=== PATIENT | male | born 1990 | race Caucasian/White ===

== ENCOUNTER 2019-04-24 03:38 | Emergency (ER) | payer OTHER ==
[~2019-04-24] VITALS: Ht 172.7 cm; Wt 104.3 kg
--- NOTE | 2019-04-24 03:57 | NUR ---
PT BIB [facility] FROM [facility] FOR ETOH INTOXICATION. PT UNRESPONSIVE, PLACED ON 3L OXYGEN VIA NC.
--- NOTE | 2019-04-24 04:00 | NUR ---
UNABLE TO COMPLETE TRIAGE ASSESSMENT AND MED REC AT THIS TIME PT IS UNRESPONSIVE.
--- NOTE | 2019-04-24 04:01 | NUR ---
PT PLACED ON HAND FILER BALANCE WHEEL. LAB AT BEDSIDE.
[2019-04-24 04:31] LABS: ALANINE AMINOTRANSFERASE 35 U/L (12-78); ALBUMIN 3.7 g/dL (3.4-5.0); ANION GAP 7 mmol/L (5-15); CALCIUM 8.1 mg/dL (8.5-10.1); CHLORIDE 114 mmol/L (98-107); CREATININE 0.94 mg/dL (0.7-1.3)
[2019-04-24 04:34] LABS: BASOPHILS # (AUTO) 0.02 x10^3/uL (0-0.1); BASOPHILS % (AUTO) 0 % (0-1); EOSINOPHILS # (AUTO) 0.01 x10^3/uL (0-0.4); EOSINOPHILS % (AUTO) 0 % (1-7); LYMPHOCYTES % (AUTO) 19 % (22-44); MD NO; MEAN CORPUSCULAR HEMOGLOBIN 31.9 pg (27.5-34.5); MEAN CORPUSCULAR HGB CONC 33.9 g/dL (33.2-36.2); MEAN CORPUSCULAR VOLUME 94.2 fL (81-97); MEAN PLATELET VOLUME 9.1 fL (7.4-10.4); MONOCYTES # (AUTO) 0.64 x10^3/uL (0.2-0.8); MONOCYTES % (AUTO) 8 % (2-9); NEUTROPHILS # (AUTO) 6.12 x10^3/uL (1.8-6.8); NEUTROPHILS % (AUTO) 73 % (42-75); PLATELET COUNT 188 x10^3/uL (130-400); RED BLOOD COUNT 5.13 x10^6/uL (4.38-5.82); RED CELL DISTRIBUTION WIDTH 13.4 % (9.4-14.8)
[2019-04-24 04:35] LABS: ALKALINE PHOSPHATASE 47 U/L (45-117); BILIRUBIN,TOTAL 0.6 mg/dL (0.2-1.0); TOTAL PROTEIN 7.2 g/dL (6.4-8.2)
--- NOTE | 2019-04-24 05:59 | NUR ---
PT REPOSITIONED ON GURNEY FOR COMFORT, STATED "HI" BEFORE FALLING ASLEEP AGAIN. RESPIRATIONS EVEN AND UNLABORED. OXYGEN LEVEL DECREASED TO 2L VIA NC.
--- NOTE | 2019-04-24 06:52 | NUR ---
REPORT TO REENA FARAH
--- NOTE | 2019-04-24 08:00 | NUR ---
found out of gurney laying across chairs in room. pt had been incontinent of urine. gurney cleaned and pt stumbled back onto gurney. rails remain up and will continue to monitor
[2019-04-24 08:26] VITALS: BP 117/82
--- NOTE | 2019-04-24 08:27 | NUR ---
unable to awake pt to get him to eat breakfast
--- NOTE | 2019-04-24 09:46 | NUR ---
UOB AND LOOKING FOR BATHROOM. STEADY GAIT. MADE AWARE. DISCHARGE PAPERS GIVEN INCLUDING ADDICTION RESOURCES. PT PROVIDED A TAXI VOUCHER
== END 2019-04-24 09:49 | disposition home or self-care (01) ==
LOC: ED 09:30
DX: F10.120 Alcohol abuse with intoxication, uncomplicated (principal)
CPT/HCPCS: 36415; 80053; 80307; 85025; 99283

== ENCOUNTER 2020-10-26 13:12 | Emergency (ER) | payer OTHER ==
[~2020-10-26] VITALS: Ht 170.2 cm; Wt 137.1 kg
--- NOTE | 2020-10-26 13:44 | NUR ---
EKG DONE IN TRIAGE.
--- NOTE | 2020-10-26 14:41 | NUR ---
life cycle assessment analyst completed. Awaiting MD eval and orders.
[2020-10-26] MEDS ORDERED: SODIUM CHLORIDE FLUSH 10ML SYR IVF ONE (15:00)
[2020-10-26] MEDS ORDERED: SODIUM CHLORIDE 0.9% 1,000ML IVBOLUS ONE (15:00)
[2020-10-26 15:20] LABS: BASOPHILS % (AUTO) 0 % (0-1); EOSINOPHILS % (AUTO) 0 % (1-7); LYMPHOCYTES % (AUTO) 12 % (22-44); MEAN CORPUSCULAR HEMOGLOBIN 32.2 pg (27.5-34.5); MEAN CORPUSCULAR HGB CONC 35.2 g/dL (33.2-36.2); MEAN PLATELET VOLUME 9.5 fL (7.4-10.4); MONOCYTES % (AUTO) 6 % (2-9); NEUTROPHILS % (AUTO) 82 % (42-75); PLATELET COUNT 186 x10^3/uL (130-400); RED BLOOD COUNT 5.14 x10^6/uL (4.38-5.82); RED CELL DISTRIBUTION WIDTH 13.4 % (9.4-14.8)
[2020-10-26 15:24] LABS: ALANINE AMINOTRANSFERASE 83 U/L (12-78); ALBUMIN 3.9 g/dL (3.4-5.0); ANION GAP 13 mmol/L (5-15); CALCIUM 8.7 mg/dL (8.5-10.1); CHLORIDE 107 mmol/L (98-107); CREATININE 0.69 mg/dL (0.7-1.3)
[2020-10-26 15:27] LABS: ALKALINE PHOSPHATASE 62 U/L (45-117); BILIRUBIN,TOTAL 1.2 mg/dL (0.2-1.0); TOTAL PROTEIN 7.3 g/dL (6.4-8.2)
--- NOTE | 2020-10-26 15:32 | NUR ---
IV started and NS bolus running without issue.
--- NOTE | 2020-10-26 15:40 | NUR ---
Lab results reviewed and chart marked for recheck. states okay to give pt sprite. Sprite brought in for pt at this time.
[2020-10-26] MEDS ORDERED: LORazepam 1MG TABLET PO ONE (16:30)
[2020-10-26] MEDS ORDERED: LORazepam 1MG TABLET ONE (16:37)
--- NOTE | 2020-10-26 16:40 | NUR ---
IVF completed, site saline locked. Ativan given PO as ordered. Chart marked for MD recheck.
--- NOTE | 2020-10-26 17:58 | NUR ---
BREAK RN::PT RESTING CALMLY IN BED AT THIS TIME. NO STATED COMPLAINTS. PT EASILY AROUSED WITH VERBAL STIMULI
--- NOTE | 2020-10-26 18:25 | NUR ---
Report received from meal break RN and care reassumed. Pt still awaiting reassessment and paln of care from MD since last documented. Pt drowsy but easily awakened after Ativan admin earlier with no significant change in jaw discomfort.
[2020-10-26 19:11] VITALS: BP 127/78
== END 2020-10-26 19:13 | disposition home or self-care (01) ==
LOC: ED 13:42
DX: E86.0 Dehydration (principal); F10.10 Alcohol abuse, uncomplicated; Y90.0 Blood alcohol level of less than 20 mg/100 ml
CPT/HCPCS: 36415; 80053; 83690; 85025; 93005; 96360; 99285; J7030